=== PATIENT | female | born 1995 | race African-American/Black ===

== ENCOUNTER → 2016-12-08 21:30 | Emergency (ER) | payer OTHER | END | disposition home or self-care (01) | LOC: ER 21:30 | DX: S93.601A Unspecified sprain of right foot, initial encounter (principal); J45.909 Unspecified asthma, uncomplicated; Z88.0 Allergy status to penicillin; X58.XXXA Exposure to other specified factors, initial encounter | CPT/HCPCS: 73630-RT; 99283 ==